=== PATIENT | female | born 1990 | race Caucasian/White ===

== ENCOUNTER 2019-04-18 13:31 | Outpatient (CLI) | payer SELFPAY ==
--- NOTE | 2019-04-18 | XR_ITS ---
WS: [id number] RIGHT WRIST: 3 VIEW(S) TECHNIQUE: PA, oblique and lateral. HISTORY: RIGHT WRIST PAIN COMPARISON: None available. No acute fracture or dislocation. No joint space abnormality. No soft tissue swelling. XR/XR wrist RT min 3V* [id number] IMPRESSION: Negative RIGHT wrist.
== END 2019-04-18 13:32 | disposition home or self-care (01) ==
LOC: RADOUTREAD 14:44
PROVIDERS: Family Provider Family Medicine; PCP Family Medicine; Visit Provider Nurse Practitioner Family
DX: M25.531 Pain in right wrist (principal)

== ENCOUNTER → 2019-10-14 09:09 | Outpatient (BNVA) | payer SELFPAY | PROVIDERS: Family Provider Family Medicine; PCP Family Medicine; Visit Provider Obstetrics & Gynecology | DX: N87.0 Mild cervical dysplasia (principal) | CPT/HCPCS: 88175 ==

== ENCOUNTER → 2020-02-05 16:05 | Outpatient (BNVA) | payer OTHER, SELFPAY | PROVIDERS: Family Provider Family Medicine; PCP Family Medicine; Visit Provider Nurse Practitioner | DX: Z11.59 Encounter for screening for other viral diseases (principal) | CPT/HCPCS: 87635 ==